=== PATIENT | male | born 1975 | race Caucasian/White ===

== ENCOUNTER 2018-07-28 18:51 | Emergency (ER) | payer OTHER ==
[~2018-07-28] VITALS: Ht 180.3 cm; Wt 77.1 kg
[2018-07-28 18:58] VITALS: BP 138/92
[2018-07-28] MEDS ORDERED: KETOROLAC 60 MG/2 ML VIAL IM ONE (19:30)
[2018-07-28 20:01] VITALS: BP 127/88
== END 2018-07-28 19:55 ==
LOC: MED 18:51
DX: M25.531 Pain in right wrist (principal); F17.200 Nicotine dependence, unspecified, uncomplicated; Z02.89 Encounter for other administrative examinations
CPT/HCPCS: 96372; 99283; J1885